=== PATIENT | female | born 1950 | race Caucasian/White ===

== ENCOUNTER 2022-08-24 14:07 | Emergency (ER) | payer MEDICARE ==
[~2022-08-24] VITALS: Ht 165.1 cm; Wt 62.7 kg
[2022-08-24 15:09] VITALS: BP 147/99
[2022-08-24] MEDS ORDERED: IBUP-1986 PO ×3 (17:47→18:04)
[2022-08-24] MEDS ORDERED: CYCL-1 PO ×3 (17:47→18:04)
== END 2022-08-24 18:00 | disposition home or self-care (01) ==
LOC: ER 14:08
DX: M79.601 Pain in right arm (principal); G89.29 Other chronic pain; Z79.899 Other long term (current) drug therapy; V87.7XXA Person injured in collision between other specified motor vehicles (traffic), initial encounter; Y93.89 Activity, other specified; Y92.89 Other specified places as the place of occurrence of the external cause; Y99.8 Other external cause status
CPT/HCPCS: 99283

== ENCOUNTER 2024-09-25 16:04 | Outpatient (CLI) | payer MEDICARE ==
[~2024-09-25 16:04] MED LIST: CYCL-1 PO; IBUP-1986 PO
--- NOTE | 2024-09-25 17:52 | RADIOLOGY REPORT ---
PROCEDURE: MR MRI LUMBAR SPINE INDICATION: BILAT FOOT PAIN Exam Date: 09/25/2024 03:50 PM COMPARISON: None TECHNIQUE: MRI lumbar spine without intravenous contrast. FINDINGS: Levoscoliosis. There are degenerative endplate changes including modic endplate changes with anteri or and lateral osteophytes throughout the lumbar spine. The visualized distal spinal cord and conus m edullaris are within normal limits. The conus medullaris appears to terminate within normal limits. The visualized retroperitoneal and paraspinal soft tissues are unremarkable. Perineural cysts at mul tiple levels noted. Tarlov cysts noted. The following axial levels are detailed below: T12-L1: There is a mild circumferential disc bulge. No significant central canal or neuroforaminal s tenosis. L1-L2: There is a mild circumferential disc bulge. No significant central canal or neuroforaminal s tenosis. L2-L3: There is a moderate circumferential disc bulge complicated by facet arthropathy associated w ith mild to moderate bilateral neuroforaminal stenosis. No significant central canal stenosis. L3-L4: There is a moderate circumferential disc bulge complicated by facet arthropathy associated w ith mild to moderate bilateral neuroforaminal stenosis. No significant central canal stenosis. L4-L5: There is a moderate circumferential disc bulge complicated by facet arthropathy associated w ith mild to moderate bilateral neuroforaminal stenosis. No significant central canal stenosis. L5-S1: There is a mild circumferential disc bulge. No significant central canal or neuroforaminal st enosis. IMPRESSION: 1. Multilevel degenerative disease. No significant central canal stenosis. Neural foraminal stenosi s as above. HS:Y
== END 2024-09-25 23:59 | disposition home or self-care (01) ==
LOC: MRI02 16:04
PROVIDERS: ATTEND Family Medicine Sports Medicine
DX: M51.17 Intervertebral disc disorders with radiculopathy, lumbosacral region (principal); M25.561 Pain in right knee; M25.562 Pain in left knee; M79.671 Pain in right foot; M77.51 Other enthesopathy of right foot and ankle; M21.611 Bunion of right foot; M19.071 Primary osteoarthritis, right ankle and foot; M47.27 Other spondylosis with radiculopathy, lumbosacral region
CPT/HCPCS: 72148